=== PATIENT | female | born 1960 | race Caucasian/White ===

== ENCOUNTER 2017-08-27 12:26 | Emergency (ER) | payer MEDICAID ==
[~2017-08-27] VITALS: Wt 86.0 kg
[2017-08-27] MEDS ORDERED: IBUPROFEN 800 MG TAB PO ONE (13:00)
--- NOTE | 2017-08-27 13:21 | RADRPT ---
PROCEDURE: US Lower extremity Venous. CLINICAL INDICATION: Lower extremity pain and swelling TECHNIQUE: Multiple sonographic images of the right lower extremity deep venous system was obtaine d utilizing grayscale, color-flow, compressive sonography and doppler imaging with augmentation. Th e images were reviewed on a PACS workstation. COMPARISON: None. FINDINGS: There is normal compressibility and flow within the right common femoral, superficial femoral and po pliteal veins. Antegrade flow seen in the posterior tibial and peroneal veins. IMPRESSION: No sonographic evidence for deep venous thrombosis. RPTAT: AA .Jay Branham MD, Date Time Electronically viewed and signed by .Jay Branham MD, on 08/27/2017 13:21 .P/
[2017-08-27] MEDS ORDERED: HYDR-902 PO (13:27)
[2017-08-27] MEDS ORDERED: IBUP-1542 PO (13:27)
--- NOTE | 2017-08-27 13:34 | ERD ---
ER Documentation Chief Complaint Date/Time DATE: 08/27/17 TIME: 13:30 Chief Complaint right leg pain x2 weeks, no injury, denies swelling/redness HPI Patient is a 57-year-old female with prediabetes who presents with right leg pain. She said that for the past 2 weeks she has had pain from her right hip to her right knee. She says it feels like a "pricked with a needle feeling". She feels spasm of the right leg as well. The pain is been constant. She says that she tried aspirin and Midol which helps but the pain returns. She has had no swelling. She has had no fevers. She had no recent trauma. Upon review of old medical records this is the patient's first visit to the emergency department and reviewed the emergency department information exchange system shows no other visits to emergency departments. She does not currently have a primary doctor. ROS All systems reviewed and are negative except as per history of present illness. Medications Home Meds Active Scripts Hydrocodone/Acetaminophen (Vancleave 10-325 Tablet) 1 Each Tablet, 1 TAB PO Q6H Y for PAIN, #7 TAB Prov:INDIANA CALIX MD 08/27/17 Ibuprofen* (Motrin*) 600 Mg Tab, 600 MG PO Q6H Y for PAIN AND OR ELEVATED TEMP, #30 TAB Prov:INDIANA CALIX MD 08/27/17 Allergies Allergies: Coded Allergies: No Known Allergy (Unverified , 08/27/17) PMhx/Soc History of Surgery: Yes (Api) Anesthesia Reaction: No Hx Neurological Disorder: No Hx Respiratory Disorders: No Hx Cardiac Disorders: No Hx Psychiatric Problems: No Hx Miscellaneous Medical Probl: No Hx Alcohol Use: No Hx Substance Use: No Hx Tobacco Use: No Smoking Status: Never smoker FmHx Family History: No diabetes Physical Exam Vitals Vital Signs Date Time Temp Pulse Resp B/P Pulse Ox O2 Delivery O2 Flow Rate FiO2 08/27/17 12:28 98.2 108 18 125/87 100 Physical Exam Const: No acute distress Head: Atraumatic Eyes: Normal Conjunctiva ENT: Normal External Ears, Nose and Mouth. Neck: Full range of motion..~ No meningismus. Resp: Clear to auscultation bilaterally Cardio: Regular rate and rhythm, no murmurs Abd: Soft, non tender, non distended. Normal bowel sounds Skin: No petechiae or rashes Back: No midline or flank tenderness Ext: No cyanosis, or edema, full range of motion, no swelling noticed in the right leg compared to the left Neur: Awake and alert Psych: Normal Mood and Affect Results 24 hrs Current Medications Medications (Trade) Dose Ordered Sig/Alyssa Route PRN Reason Start Time Stop Time Status Last Admin Dose Admin Ibuprofen (Motrin) 800 mg ONCE ONCE PO 08/27/17 13:00 08/27/17 13:01 DC 08/27/17 13:17 Procedures/MDM Ultrasound of the right lower extremity shows no DVT per radiology. The patient was provided with a copy of the report. Patient is a 57-year-old female who presents with right leg pain. There is no sign of fracture or dislocation and the patient had no trauma. I do not believe that x-rays are indicated at this time. Ultrasound the right leg was done which did not show any sign of DVT. There is no sign of infection. I believe the patient likely is dealing with IT band syndrome as the pain is mostly in the lateral portion of her right leg from the hip to the knee. She can return for any worsening symptoms. I believe outpatient management is appropriate. The patient will be given a prescription for ibuprofen and short course of Vancleave. She will be given information for the local clinics that she does not currently have a primary doctor. Departure Diagnosis: Primary Impression: IT band syndrome Laterality: right Qualified Code: M76.31 - Iliotibial band syndrome of right side Additional Impression: Pain of right leg Condition: Fair Patient Instructions: Possible Causes of Low Back or Leg Pain Referrals: [facility] YOU HAVE RECEIVED A MEDICAL SCREENING EXAM AND THE RESULTS INDICATE THAT YOU DO NOT HAVE A CONDITION THAT REQUIRES URGENT TREATMENT IN THE EMERGENCY DEPARTMENT. FURTHER EVALUATION AND TREATMENT OF YOUR CONDITION CAN WAIT UNTIL YOU ARE SEEN IN YOUR DOCTORS OFFICE WITHIN THE NEXT 1-2 DAYS. IT IS YOUR RESPONSIBILITY TO MAKE AN APPOINTMENT FOR FOLOW-UP CARE. IF YOU HAVE A PRIMARY DOCTOR --you should call your primary doctor and schedule an appointment IF YOU DO NOT HAVE A PRIMARY DOCTOR YOU CAN CALL OUR PHYSICIAN REFERRAL HOTLINE AT IF YOU CAN NOT AFFORD TO SEE A PHYSICIAN YOU CAN CHOSE FROM THE FOLLOWING [facility] [address] [address] [facility] [id number] [facility]. [facility] [facility] [address] [facility] [address] [facility] [address] [facility]. [facility] [address] Additional Instructions: Call your primary care doctor TOMORROW for an appointment during the next 1-2 days.See the doctor sooner or return here if your condition worsens before your appointment time. INDIANA CALIX MD Aug 27, 2017 13:33
== END 2017-08-27 13:56 | disposition home or self-care (01) ==
LOC: FTE 12:26
DX: M76.31 Iliotibial band syndrome, right leg (principal)
CPT/HCPCS: 93971; Z7502; Z7610; 99283